=== PATIENT | female | born 1965 | race Caucasian/White ===

== ENCOUNTER 2018-02-17 10:22 | Day surgery (SDC) | payer OTHER ==
[~2018-02-17 10:22] MED LIST: LIDOCAINE 2% (SDV) 5 ML INJ
[2018-02-17] MEDS ORDERED: PROPOFOL 100 ML (13:46)
[2018-02-17] MEDS ORDERED: ACETAMINOPHEN 1000MG/100ML IV 100 ML (13:50)
[2018-02-17] MEDS ORDERED: DEXAMETHASONE 4 MG/ML 1 ML INJ (14:19)
[2018-02-17] MEDS ORDERED: ONDANSETRON 4 MG INJ (14:19)
[2018-02-17] MEDS ORDERED: CEFAZOLIN 1 GM INJ (14:28)
[2018-02-17] MEDS ORDERED: ROCURONIUM 50 MG INJ (14:28)
[2018-02-17] MEDS ORDERED: SUGAMMADEX SODIUM 200 MG/2 ML VIAL IV (14:28)
[2018-02-17] MEDS: ROPIVACAINE 0.5 % 30 ML VIAL (14:45)
[2018-02-17] MEDS ORDERED: HYDROmorphONE (0.2 MG/ML) 10ML SYG IV ×3 (14:48→15:00)
[2018-02-17] MEDS: ONDANSETRON 4 MG INJ IV (14:50)
[2018-02-17] MEDS: HYDROmorphONE (0.2 MG/ML) 10ML SYG IV (14:53)
[2018-02-17] MEDS: EPINEPHrine 1 MG/ML 30 ML INJ IRR (14:54)
[2018-02-17] MEDS ORDERED: LABETALOL HCL 20MG INJ IV (15:00)
[2018-02-17] MEDS ORDERED: DIPHENHYDRAMINE 50 MG INJ IV (15:00)
[2018-02-17] MEDS ORDERED: METOCLOPRAMIDE 10 MG INJ IV (15:00)
[2018-02-17] MEDS ORDERED: FENTAnyl 50 MCG/ML VIAL IV ×3 (15:00)
[2018-02-17] MEDS ORDERED: hydrALAzine 20 MG INJ IV (15:00)
[2018-02-17] MEDS ORDERED: ALBUTEROL 0.083% (NEB) 2.5 MG/3 ML AMP HHN (15:00)
[2018-02-17] MEDS ORDERED: MIDAZOLAM 1 MG/ML 2 ML INJ IV (15:00)
[2018-02-17] MEDS ORDERED: KETOROLAC 30 MG INJ IV (15:00)
[2018-02-17] MEDS ORDERED: ONDANSETRON 4 MG INJ IV (15:00)
[2018-02-17] MEDS ORDERED: HYDROCODONE/APAP (5/325) TAB PO ×2 (15:00)
[2018-02-17] MEDS ORDERED: morphine 2 MG INJ IV (15:00)
[2018-02-17] MEDS ORDERED: MEPERIDINE 25 MG INJ IV (15:00)
[2018-02-17] MEDS ORDERED: EPHEDrine SULFATE 50 MG/5 ML SYG IV (15:00)
[2018-02-17] MEDS ORDERED: OXYCODONE/ACETAMINOPHEN (5/325) TAB PO (15:00)
[2018-02-17] MEDS: OXYCODONE/ACETAMINOPHEN (5/325) TAB PO (16:22)
== END 2018-02-17 16:44 | disposition home or self-care (01) ==
LOC: SDS 10:22
DX: M23.212 Derangement of anterior horn of medial meniscus due to old tear or injury, left knee (principal); M23.222 Derangement of posterior horn of medial meniscus due to old tear or injury, left knee
CPT/HCPCS: 29881